=== PATIENT | female | born 1945 ===

== ENCOUNTER 2022-06-19 09:25 | Outpatient (CLI) | payer OTHER | END 2022-06-19 09:31 | disposition home or self-care (01) | LOC: RX STUDY 09:25 | PROVIDERS: ATTEND Internal Medicine Pulmonary Disease | DX: R13.12 Dysphagia, oropharyngeal phase (principal) ==

== ENCOUNTER → 2022-06-30 14:03 | Outpatient (CLI) | payer OTHER | END | disposition home or self-care (01) | LOC: LAB 14:03 | PROVIDERS: ATTEND Radiology Diagnostic Radiology | DX: J98.11 Atelectasis (principal) ==

== ENCOUNTER 2022-07-02 10:06 | Outpatient (CLI) | payer OTHER | END 2022-07-02 10:23 | disposition home or self-care (01) | LOC: TOM 10:06 | PROVIDERS: ATTEND Internal Medicine Pulmonary Disease | DX: R91.8 Other nonspecific abnormal finding of lung field (principal); J98.11 Atelectasis | CPT/HCPCS: 71260; Q9965 ==